=== PATIENT | male | born 1985 | race Caucasian/White ===

== ENCOUNTER 2021-03-21 17:55 | Inpatient (IN) | payer OTHER ==
[2021-03-21] MEDS ORDERED: morphine CARPU-JECT 4 MG/1 ML DISP.SYRIN IVPUSH ONE (18:18)
[2021-03-21] MEDS ORDERED: morphine SULFATE 4 MG/ML VIAL ONE (18:33)
[2021-03-21] MEDS ORDERED: HYDROmorphone HCL CARPU-JECT 2 MG/1 ML DISP.SYRIN IVPUSH ONE ×2 (18:46→19:38)
[2021-03-21] MEDS ORDERED: SODIUM CHLORIDE 0.9% 500 ML INFUS.BAG IV ONE (18:46)
[2021-03-21] MEDS ORDERED: HYDROmorphone HCl 2 MG/ML VIAL ONE (19:06)
[2021-03-21 19:28] LABS: BASO % 0.4 % (0-2.0); EOS % 0.5 % (0-4.5); HEMATOCRIT 42.7 % (35.4-49); HEMOGLOBIN 14.3 GM/dL (11.7-16.9); LYMPH % 11.2 % (8-40); MCH 28.2 pg (25.7-33.7); MCHC 33.4 g/dl (32.0-35.9); MEAN CELL VOLUME 84.5 fl (80-96); MEAN PLT VOLUME 8.3 fl (7.5-11.1); MONO % 4.9 % (3.8-10.2); PLATELET COUNT 273 10^3/uL (134-434); RBC 5.06 M/mm3 (4.00-5.60); RDW 13.9 % (11.9-15.9); WHITE BLOOD COUNT 13.5 K/mm3 (4.0-10.0)
[2021-03-21 19:35] LABS: PROTHROMBIN TIME (PATIENT) 11.7 SEC (9.7-13.0)
[2021-03-21 19:47] LABS: CHLORIDE 110 mmol/L (98-107); SODIUM 143 mmol/L (136-145)
[2021-03-21 19:52] LABS: CALCIUM 9.6 mg/dL (8.5-10.1)
[2021-03-21 19:53] LABS: ANION GAP 10 MMOL/L (8-16); CO2 23 mmol/L (21-32)
[2021-03-21 19:54] LABS: GLUCOSE,RANDOM 78 mg/dL (74-106)
[2021-03-21 19:56] LABS: CREATININE 1.2 mg/dL (0.55-1.3); SGOT/AST 17 U/L (15-37); SGPT/ALT 24 U/L (13-61)
[2021-03-21 19:58] LABS: BILIRUBIN,TOTAL 0.4 mg/dL (0.2-1); TOT PROT 7.5 g/dl (6.4-8.2)
[2021-03-21 19:59] LABS: ALK PHOS 84 U/L (45-117)
[2021-03-21] MEDS ORDERED: LACTATED RINGERS SOLUTION 1,000 ML IV SCH (23:00)
[2021-03-21] MEDS ORDERED: PROMETHAZINE HCL 25 MG/1 ML VIAL IVPUSH PRN (23:00)
[2021-03-21] MEDS ORDERED: ONDANSETRON 4 MG/2 ML VIAL IVPUSH PRN (23:00)
[2021-03-21] MEDS ORDERED: BUPIVACAINE HCL/PF 0.5% (5MG/ML) 10 ML VIAL ONE (23:15)
[2021-03-21] MEDS ORDERED: MIDAZOLAM HCL 2 MG/2 ML SINGLE DOSE VIAL ONE (23:37)
[2021-03-21] MEDS ORDERED: MORPHINE 5 MG/10 ML AMP - FOR COMPOUNDING USE ONLY ONE (23:38)
[2021-03-21] MEDS ORDERED: GLYCOPYRROLATE 0.2 MG/1 ML VIAL ONE (23:38)
[2021-03-21] MEDS ORDERED: SODIUM CHLORIDE 0.9% P/F 10 ML VIAL IJ ONE (23:39)
[2021-03-21] MEDS ORDERED: ceFAZolin SODIUM 1 GM VIAL ONE (23:39)
[2021-03-22] MEDS ORDERED: PROPOFOL 20 ML ONE ×3 (00:19→01:07)
[2021-03-22] MEDS ORDERED: ceFAZolin SODIUM 1 GM VIAL IVPB ONE (00:23)
[2021-03-22] MEDS ORDERED: DEXAMETHASONE SOD PHOSPHATE 4 MG/1 ML VIAL ONE (00:35)
[2021-03-22] MEDS ORDERED: ONDANSETRON 4 MG/2 ML VIAL ONE (00:35)
[2021-03-22] MEDS ORDERED: KETOROLAC TROMETHAMINE 30 MG/1 ML VIAL ONE (00:35)
[2021-03-22] MEDS ORDERED: SUCCINYLCHOLINE CHLORIDE 200 MG/10 ML SYRINGE ONE (00:43)
[2021-03-22] MEDS ORDERED: ONDANSETRON 4 MG/2 ML VIAL IVPUSH PRN (01:46)
[2021-03-22] MEDS ORDERED: PROMETHAZINE HCL 25 MG/1 ML VIAL IVPUSH PRN (01:46)
[2021-03-22] MEDS: LACTATED RINGERS SOLUTION 1,000 ML IV SCH (02:14)
[2021-03-22 04:19] VITALS: BMI 28.5
[2021-03-22 08:47] LABS: BASO % 0.2 % (0-2.0); HEMATOCRIT 39.4 % (35.4-49); HEMOGLOBIN 13.2 GM/dL (11.7-16.9); LYMPH % 6.8 % (8-40); MCH 28.4 pg (25.7-33.7); MCHC 33.6 g/dl (32.0-35.9); MEAN CELL VOLUME 84.7 fl (80-96); MEAN PLT VOLUME 8.2 fl (7.5-11.1); MONO % 6.3 % (3.8-10.2); NEUT % 86.7 % (42.8-82.8); PLATELET COUNT 235 10^3/uL (134-434); RBC 4.65 M/mm3 (4.00-5.60); RDW 13.9 % (11.9-15.9); WHITE BLOOD COUNT 13.9 K/mm3 (4.0-10.0)
[2021-03-22 09:01] LABS: ALBUMIN 3.3 g/dl (3.4-5.0); BLOOD UREA NITROGEN 10.1 mg/dL (7-18); CALCIUM 8.7 mg/dL (8.5-10.1); MAGNESIUM 2.4 mg/dL (1.8-2.4)
[2021-03-22 09:04] LABS: CREATININE 0.9 mg/dL (0.55-1.3)
[2021-03-22 09:06] LABS: BILIRUBIN,TOTAL 0.7 mg/dL (0.2-1); TOT PROT 6.3 g/dl (6.4-8.2)
[2021-03-22] MEDS: morphine SULFATE 4 MG/ML VIAL IVPUSH PRN ×2 (09:45→21:58)
[2021-03-22 11:16] LABS: HEMATOCRIT 37.9 % (35.4-49); HEMOGLOBIN 12.8 GM/dL (11.7-16.9); MCH 28.6 pg (25.7-33.7); MCHC 33.8 g/dl (32.0-35.9); MEAN CELL VOLUME 84.6 fl (80-96); MEAN PLT VOLUME 8.2 fl (7.5-11.1); PLATELET COUNT 231 10^3/uL (134-434); RBC 4.48 M/mm3 (4.00-5.60); WHITE BLOOD COUNT 12.5 K/mm3 (4.0-10.0)
[2021-03-22] MEDS ORDERED: ACETAMINOPHEN 325 MG TABLET (FP) PO PRN (18:52)
[2021-03-23 03:16] LABS: PH,URINE 6.5 (5.0-8.0); URINE APPEARANCE CLEAR; URINE BILIRUBIN NEGATIVE (NEGATIVE); URINE COLOR YELLOW; URINE GLUCOSE (UA) NEGATIVE (NEGATIVE); URINE KETONE NEGATIVE (NEGATIVE); URINE LEUK ESTERASE NEGATIVE (NEGATIVE); URINE NITRITE NEGATIVE (NEGATIVE); URINE PROTEIN NEGATIVE (NEGATIVE); URINE UROBILINOGEN 0.2 mg/dL (0.2-1.0)
[2021-03-23 03:22] LABS: COCAINE, UR NEGATIVE (NEGATIVE); METHADONE, UR NEGATIVE (NEGATIVE); URINE BENZODIAZEPINES NEGATIVE (NEGATIVE)
[2021-03-23 03:23] LABS: PHENCYCLIDINE,URINE NEGATIVE (NEGATIVE)
[2021-03-23 03:29] LABS: OPIATES, URI POSITIVE (NEGATIVE); URINE AMPHETAMINES NEGATIVE (NEGATIVE); URINE BARBITURATES NEGATIVE (NEGATIVE)
[2021-03-23] MEDS: morphine SULFATE 4 MG/ML VIAL IVPUSH PRN ×3 (05:32→15:09)
[2021-03-23] MEDS: LACTATED RINGERS SOLUTION 1,000 ML IV SCH (09:28)
[2021-03-23] MEDS ORDERED: ENOXAPARIN NA (PORCINE) 40 MG/0.4 ML DISP.SYRIN SQ SCH (10:00)
[2021-03-23 18:04] VITALS: BP 138/60; PULSE 77; TEMP 98.9
== END 2021-03-23 18:06 | disposition home or self-care (01) | DRG 308 ==
LOC: JER 17:55 → JERBED 21:22 → J6S 03-22 03:18
PROVIDERS: ADMIT Internal Medicine
PROC: 0QS734Z Reposition Left Upper Femur with Internal Fixation Device, Percutaneous Approach (ICD-10-PCS; principal; 2021-03-22 00:03)
DX: S72.092A Other fracture of head and neck of left femur, initial encounter for closed fracture (principal); F12.10 Cannabis abuse, uncomplicated; D72.829 Elevated white blood cell count, unspecified; W11.XXXA Fall on and from ladder, initial encounter; Y93.9 Activity, unspecified; Y92.89 Other specified places as the place of occurrence of the external cause; Y99.9 Unspecified external cause status
CPT/HCPCS: 36415; 70450-TC; 71260-TC; 72125-TC; 72128-TC; 72131-TC; 73110-TC-LT-FY; 73130-TC-LT-FY; 73523-TC-FY; 73552-TC-LT-FY; 74177-TC; 76000-TC-FY; 80053; 80307; 81003; 82962; 83735; 84100; 85025; 85027; 85610; 86850; 86900; 86901; 94760; 97116-GP; 97162-GP; 99285-25; C9803; Q9967; U0003; U0005